=== PATIENT | female | born 1970 | race Caucasian/White ===

== ENCOUNTER 2019-03-26 20:40 | Emergency (ER) | payer BC, SELFPAY ==
[2019-03-26 20:43] VITALS: BP 143/82; PULSE 84; RESP 18; TEMP 36.7; O2SAT 99
--- NOTE | 2019-03-26 20:58 | ED.GENADUL_ITS ---
Discharge Plan Disposition Patient Disposition: HOME Condition: Stable Discharge Details Chief Complaint: Urinary Clinical Impression: UTI (urinary tract infection) Primary Care Provider: Zahra Wade ED Provider: Carolee Combs Home Meds and New Rx's Prescriptions: New ciprofloxacin HCl [Cipro] 250 mg tablet 250 mg PO BID 3 Days Qty: 6 RF: 0 phenazopyridine [Pyridium] 100 mg tablet 100 mg PO TID PRN (Reason: pain) Qty: 6 RF: 0 Continued ibuprofen 800 mg tablet 800 mg PO Q8H PRN (Reason: pain) Qty: 42 RF: 0 lidocaine 5 % adhesive patch,medicated See Rx Instructions TP .COMPLEX Qty: 30 RF: 0 Discharge Instructions Instructions: Urinary Tract Infection in Women (ED) Additional Instructions: Take the antibiotics until finished. Take the Pyridium as needed and directed. Follow-up with your primary care doctor this week for reevaluation. Return to the emergency department if you develop any worsening or new concerning symptoms of fever, vomiting, or worsening pain. Discharge Data Discharge Physician: Carolee Combs Medical Decision Making 48-year-old female with dysuria, frequency, urgency and lower back pain for the past few hours. She has a history of UTIs and states this feels similar. Denies fever, vomiting or abdominal pain. Vitals within normal limits. Patient appears nontoxic. Abdomen soft nontender. No CVA tenderness. Urinalysis notes UTI. Will give dose of Cipro here as well as one for the morning. She was also given prescription in bottle for Pyridium. She is advised to drink plenty of fluids, follow-up with her primary care doctor and return here with any worsening or concerning symptoms such as fever, vomiting or worsening pain. Medical Records Medical records reviewed: Yes I reviewed the patient's medical records. Lab Data Lab results reviewed: Yes I reviewed the patient's lab results. Labs: 03/26/19 21:10 Urine - Reflex from Ua Urine Culture - Pending Laboratory Tests Range/Units 03/26/19 21:10 Urine Color (Yellow) Yellow Urine Clarity (Clear) Clear Urine pH (5-8) 5.5 Ur Specific Boaz (1.005-1.025) <= 1.005 Urine Protein (Negative) mg/dL Negative Urine Ketones (Negative) mg/dL Negative Urine Blood (Negative) Moderate H Urine Nitrite (Negative) Negative Urine Bilirubin (Negative) Negative Urine Urobilinogen (Up TO 0.2) EU/dL 0.2 Ur Leukocyte Esterase (Negative) Small H Urine RBC (0-2) Negative Urine WBC (0-5) HPF >50 Ur Epithelial Cells (Negative) HPF Few Urine Crystals (Negative) HPF Negative Urine Bacteria (Negative) HPF Few Urine Casts (Negative) LPF Negative Urine Mucus (Negative) Negative Ur Culture Indicated? Yes Urine Glucose (Negative) mg/dL Negative HPI General Mode of arrival: ambulatory . Date/Time Provider Initiated Documentation: 03/26/19 20:51 . Limitations to Documentation: no limitations . Information obtained by: patient . HPI Narrative: Patient is a 48-year-old female who presents with dysuria, urinary urgency, frequency for the past few hours. She states she has a history of UTIs and states this feels similar. She denies any known fever, nausea, vomiting, abdominal pain. She does admit to mild achy lower back pain. Related Data Home Medications Medication Instructions Recorded Confirmed ibuprofen 800 mg tablet 800 mg PO Q8H PRN #42 tab 02/21/19 03/26/19 lidocaine 5 % topical patch See Rx Instructions TP .COMPLEX 02/21/19 03/26/19 #30 each ciprofloxacin HCl [Cipro] 250 mg PO BID 3 Days #6 tab 03/26/19 phenazopyridine [Pyridium] 100 mg PO TID PRN #6 tab 03/26/19 Previous Rx's Medication Instructions Recorded ibuprofen 800 mg tablet 800 mg PO Q8H PRN #42 tab 02/21/19 lidocaine 5 % topical patch See Rx Instructions TP .COMPLEX 02/21/19 #30 each ciprofloxacin HCl [Cipro] 250 mg PO BID 3 Days #6 tab 03/26/19 phenazopyridine [Pyridium] 100 mg PO TID PRN #6 tab 03/26/19 Allergies Allergy/AdvReac Type Severity Reaction Status Date / Time codeine Allergy Severe hives Verified 03/26/19 20:45 Penicillins Allergy Severe hives Verified 03/26/19 20:45 General Stated Complaint: Urinary BETSY: 4 Review of Systems Review of Systems ROS Unobtainable: All systems reviewed & are unremarkable except as noted in HPI and below Constitutional Constitutional: Reports as per HPI, Denies chills and Denies fever(s) Eyes Eyes: Denies blurry vision ENT Ears, Nose, Mouth, and Throat: Denies dizziness, Denies sore throat and Denies throat swelling Cardiovascular Cardiovascular: Denies chest pain and Denies dyspnea Respiratory Respiratory: Denies cough and Denies dyspnea Gastrointestinal Gastrointestinal: Denies abdominal pain, Denies diarrhea and Denies vomiting Genitourinary Genitourinary: Denies hematuria, Reports urinary frequency, Reports dysuria and Reports urinary urgency Musculoskeletal Musculoskeletal: Denies back pain and Denies numbness Integumentary/Breasts Skin/Breast: Denies lesions and Denies rash Neurologic Neurologic: Denies dizziness, Denies focal weakness and Denies numbness Allergic/Immunologic Allergic/Immunologic: Denies throat swelling [facility] Medical History Ovarian cyst (Acute) Surgical History H/O bilateral salpingectomy (Acute) H/O ovarian cystectomy (Acute) Social History Smoking/Tobacco Use Status: Never Alcohol Intake: current Alcohol Intake frequency: holidays/special occasions only Drug use: Never Substance use type: does not use Do you feel safe at home: Yes Do you feel safe in your relationship?: Yes Exam Const General: cooperative, healthy appearing and no acute distress HENMT Head: normal to inspection Face and sinus: normal facial exam Eyes General: appearance normal, both eyes and all related structures EOM: EOM intact bilaterally Neck Neck: normal visual inspection and No submandibular swelling Lymphatic: no lymphadenopathy noted Chest Chest: normal inspection of the chest and no tenderness Resp Effort & Inspection: normal respiratory effort and able to speak in complete sentences Auscultation: clear to auscultation bilaterally Cardio Rate: regular rate Rhythm: regular rhythm GI Inspection: normal to inspection Palpation: soft, not firm, not rigid and nontender Auscultation: normal bowel sounds Back/Spine/Pelvis Back: no CVA tenderness Skin General skin exam: no rashes or lesions noted Neuro General: alert, awake and oriented x3 Cognition: normal cognition Speech: speech normal Motor: muscle tone normal throughout Sensory Exam: no sensory deficits noted Extrem General: normal to inspection, full ROM, normal capillary refill, no calf tenderness bilaterally and no edema Psych Appearance: grossly normal Mental Status: mental status grossly normal Speech and Movement: speech and movement normal Affect: normal affect Course Vital Signs Vital signs: Vital Signs Temperature 98.1 F 03/26/19 20:43 Pulse 84 03/26/19 20:43 Respiratory Rate 18 03/26/19 20:43 Blood Pressure 143/82 H 03/26/19 20:43 Pulse Oximetry 99 03/26/19 20:43 Temperature 98.1 F 03/26/19 20:43 Temperature Source Skin 03/26/19 20:43 Pulse 84 03/26/19 20:43 Respiratory Rate 18 03/26/19 20:43 Respiratory Effort 03/26/19 20:47 Blood Pressure 143/82 H 03/26/19 20:43 Blood Pressure Position Sitting 03/26/19 20:43 Pulse Oximetry 99 03/26/19 20:43 Oxygen Delivery Method Room Air 03/26/19 20:43 Oxygen Flow Rate 0 03/26/19 20:43 Pain Level 8 03/26/19 20:47
[2019-03-26] MEDS: Phenazopyridine 100 MG TAB PO (21:11)
[2019-03-26 21:19] LABS: Bilirubin Negative (Negative); Blood Moderate (Negative); Clarity Clear (Clear); Glucose Negative (Negative); Ketones Negative (Negative); Leukocyte Esterase Small (Negative); Nitrite Negative (Negative); Specific Gravity <= 1.005 (1.005-1.025); Urobilinogen 0.2 EU/dL (Up TO 0.2); pH 5.5 (5-8)
[2019-03-26 21:27] LABS: Bacteria Few HPF (Negative); C & S Indicated? Yes; Casts Negative LPF (Negative); Crystals Negative HPF (Negative); Epithelial Cells Few HPF (Negative); Mucus Negative (Negative); RBC Negative (0-2); WBC >50 HPF (0-5)
[2019-03-26] MEDS: Ciprofloxacin 250 MG TAB PO ×2 (21:56)
[2019-03-26 21:59] VITALS: BP 127/69; PULSE 78; RESP 18; TEMP 36.8; O2SAT 99
== END 2019-03-26 22:00 | disposition home or self-care (01) ==
PROVIDERS: Emergency Provider Physician Assistant; PCP Physician Assistant
DX: N39.0 Urinary tract infection, site not specified (principal); B96.20 Unspecified Escherichia coli [E. coli] as the cause of diseases classified elsewhere
CPT/HCPCS: 87077; 99283; 81003; 81015; 87086; 87186